=== PATIENT | male | born 1975 | race Caucasian/White ===

== ENCOUNTER 2025-09-12 17:54 | Emergency (ER) | payer MEDICAID ==
[~2025-09-12] VITALS: Ht 165.1 cm; Wt 67.0 kg
[2025-09-12 17:56] VITALS: O2SAT 99
[2025-09-12 19:40] LABS: BASOPHILS % 0.6 % (0.0-2.0); EOSINOPHILS % 0.5 % (0.0-5.0); HEMATOCRIT. 43.5 % (42.0-52.0); HEMOGLOBIN. 14.9 g/dL (14.0-18.0); LYMPHOCYTES % 24.7 % (20.0-50.0); MEAN PLATELET VOLUME 10.1 fl (7.4-10.4); MONOCYTES % 6.7 % (2.0-8.0); NEUTROPHILS % 67.5 % (40.0-76.0); PLATELET 228 x1000/uL (130-400); RED BLOOD CELL COUNT 4.68 mill/uL (4.7-6.1); RED CELL DISTRIBUTION WIDTH 12.2 % (11.6-14.6)
[2025-09-12 19:53] LABS: CREATININE 1.0 mg/dL (0.6-1.3); UREA NITROGEN BLOOD 7 mg/dL (9-23)
[2025-09-12 19:54] LABS: TROPONIN I HIGH SENSITIVITY < 4 ng/L (3.0-53)
[2025-09-12 20:14] LABS: *AMPHETAMINES SCREEN URINE NEGATIVE (NEGATIVE); *BARBITURATES SCREEN URINE NEGATIVE (NEGATIVE); *BENZODIAZEPINES SCREEN URINE NEGATIVE (NEGATIVE); *COCAINE SCREEN URINE NEGATIVE (NEGATIVE); CANNABINOID URINE SCREEN NEGATIVE (NEGATIVE); ECSTASY MDMA SCREEN URINE NEGATIVE (NEGATIVE); METHADONE URINE SCREEN NEGATIVE (NEGATIVE); OPIATES URINE SCREEN NEGATIVE (NEGATIVE); PHENCYCLIDINE URINE SCREEN NEGATIVE (NEGATIVE)
[2025-09-12] MEDS: SODIUM CHLORIDE 0.9% 1,000 ML IV ONE (22:03)
[2025-09-12] MEDS: INSULIN REGULAR (HUMULIN R) 1000UNITS/10ML VIAL IV ONE (22:29)
[2025-09-12 23:24] VITALS: BP 129/81; PULSE 82; RESP 18; TEMP 37.1; O2SAT 99
== END 2025-09-12 23:30 | disposition home or self-care (01) ==
LOC: ER 17:54
DX: R00.2 Palpitations (principal); E11.9 Type 2 diabetes mellitus without complications; Z79.899 Other long term (current) drug therapy
CPT/HCPCS: 99285; 96360; 96374; 71045; 80305; 80048; 82010; 82962; 85025; 84484; 36415; 93005; J7030; J1815